=== PATIENT | female | born 1995 | race Caucasian/White ===

== ENCOUNTER 2017-06-17 09:31 | Inpatient (IN) | payer MEDICAID, SELFPAY ==
[2017-06-17] MEDS: Lactated Ringers 1,000 ML 50 ML IV ×2 (09:45→10:45)
[2017-06-17 09:54] VITALS: BMI 26.4
[2017-06-17 10:10] LABS: Hematocrit 35.9 % (37-47); Hemoglobin 11.9 g/dl (12.0-15.0); Mean Corp Hgb Conc 33.1 g/gl (32-36); Mean Corpuscular Hgb 29.8 pg (27.0-32.0); Mean Corpuscular Volume 89.8 fL (81-99); Mean Platelet Vol. 10.2 fl (6.2-12.0); Platelet Count 314 K/mm3 (150-450); RBC Distribution Width CV 14.8 % (11.6-14.6); RBC Distribution Width SD 47.7 fl (35.1-43.9); White Blood Count 12.2 K/mm3 (4.4-11.0)
[2017-06-17 10:11] LABS: Scan Indicated on CBC? Y/N NO
[2017-06-17 10:15] LABS: Fibrinogen 345 mg/dl (203-444)
[2017-06-17 10:32] LABS: Hemoglobin A1c 4.9 % (4.2-6.3)
[2017-06-17] MEDS: fentaNYL-bupivacaine (epidural) 100 ML BAG EPIDURAL (11:30)
[2017-06-17] MEDS: Oxytocin 30 units/NS 500 ml 30 UNITS/500 ML IV.SOLN 334 UNITS IV (12:40)
[2017-06-17 12:57] LABS: Amphetamine Urine VISTA NEGATIVE (<1000 ng/mL); Barbiturate Urine VISTA NEGATIVE (< 200 ng/mL); Benzodiazepine Urine VISTA NEGATIVE (< 200 ng/mL); Cocaine Urine VISTA NEGATIVE (< 300 ng/mL); Ecstacy Urine VISTA NEGATIVE (< 500 ng/mL); Methadone Urine VISTA NEGATIVE (< 300 ng/mL); PCP Urine VISTA NEGATIVE (< 25 ng/mL); THC Urine VISTA NEGATIVE (< 50 ng/mL); Vista UDS pH Range 7
[2017-06-17] MEDS: Oxytocin 30 units/NS 500 ml 30 UNITS/500 ML IV.SOLN 167 UNITS IV (13:10)
[2017-06-17] MEDS: Methylergonovine 0.2 MG/ML Ampul IM (14:13)
[2017-06-17] MEDS: 0.9% Saline Lock 10 ML Syringe IV (16:04)
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
[2017-06-17] MEDS: Naproxen 250 MG Tablet 500 MG PO (17:08)
[2017-06-17 17:30] VITALS: BP 117/58; PULSE 85; RESP 18; TEMP 36.9
[2017-06-17 20:48] VITALS: BP 126/61; PULSE 85; RESP 16; TEMP 36.5
[2017-06-18] VITALS: BP 122/56; PULSE 75; RESP 15; TEMP 36.8
[2017-06-18] MEDS: Acetaminophen 325 MG Tablet PO ×2 (00:12→22:34)
--- NOTE | 2017-06-18 03:48 | NURSING ---
Patient aware that infant needing to eat every 3 hours. Infant was due to eat at 0300. Entered room and patient sleeping sound. Very difficulty to awaken. Attempted to feed infant by holding bottle in 's mouth. not sucking. This nurse took infant and worked with him feeding. Chin support needed. It took 20 minutes for to take in 12cc. Patient slept entire time.
[2017-06-18 03:58] VITALS: PULSE 74; RESP 14
--- NOTE | 2017-06-18 06:26 | PCM.HP.OB ---
- Problem List (1) Limited care Status: Acute (2) Methamphetamine use Status: Acute (3) Supervision of high risk due to social problems Status: Acute (4) Active labor at term Status: Acute History Date of Admission: 06/17/17 Final FABIAN: 06/20/17 Gestational age: 39 Weeks and 5 Days History of this : 22 yo @ 39w4d presented IAL 6 cm. she recently moved here from [place] and hadn't received care since 24 week GA. she had normal lab testing and an anatomy scan thatw as normal and consistent with her FABIAN by LMP. she never received diabetes testing. she admits methamphetamine use a week ago and has previously been in recovery but now relapsed. she doesn't have custody of her other two children. Pertinent Past Medical History: Mom's Labs & Results 06/17/17 06/17/17 06/17/17 09:45 09:45 09:45 WBC 12.2 H RBC 4.00 L Hgb 11.9 L Hct 35.9 L MCV 89.8 MCH 29.8 MCHC 33.1 RDW 14.8 H RDW Differential 47.7 H Plt Count 314 MPV 10.2 Fibrinogen 345 Hemoglobin A1c Urine Opiates Screen Urine Methadone Screen Ur Barbiturates Screen Ur Phencyclidine Scrn Ur Amphetamines Screen U Methamphetamin-MDMA U Benzodiazepines Scrn Urine Cocaine Screen U Cannabinoids Screen Ur Drug Screen Comment Hepatitis C Ab (EIA) HCV RNA Quant (PCR) Hepatitis C Comment Blood Type Cancelled Antibody Screen Cancelled 06/17/17 06/17/17 06/17/17 09:45 12:30 17:20 WBC RBC Hgb Hct MCV MCH MCHC RDW RDW Differential Plt Count MPV Fibrinogen Hemoglobin A1c 4.9 Urine Opiates Screen NEGATIVE Urine Methadone Screen NEGATIVE Ur Barbiturates Screen NEGATIVE Ur Phencyclidine Scrn NEGATIVE Ur Amphetamines Screen NEGATIVE U Methamphetamin-MDMA NEGATIVE U Benzodiazepines Scrn NEGATIVE Urine Cocaine Screen NEGATIVE U Cannabinoids Screen NEGATIVE Ur Drug Screen Comment Hepatitis C Ab (EIA) HCV RNA Quant (PCR) Hepatitis C Comment Blood Type B POSITIVE Antibody Screen NEGATIVE 06/17/17 18:00 WBC RBC Hgb Hct MCV MCH MCHC RDW RDW Differential Plt Count MPV Fibrinogen Hemoglobin A1c Urine Opiates Screen Urine Methadone Screen Ur Barbiturates Screen Ur Phencyclidine Scrn Ur Amphetamines Screen U Methamphetamin-MDMA U Benzodiazepines Scrn Urine Cocaine Screen U Cannabinoids Screen Ur Drug Screen Comment Hepatitis C Ab (EIA) Pending HCV RNA Quant (PCR) Pending Hepatitis C Comment Pending Blood Type Antibody Screen Course Did the patient receive Yes care? Labs Blood Type: B RH: POSITIVE RPR/VDRL/Syphilis Nonreactive Rubella status Immune HbSAg Negative Date Done: 11/11/16 Chlamydia Negative Gonorrhea Negative HIV/AIDS Non-Reactive Group B Strep: Not Done Current Obstetrical History Gestational Diabetes No Incompetent Cervix No Infertility No IUGR No Macrosomia No Hypertension/Pre-eclampsia No Placenta Previa/Abruption No PTL/PROM No Uterine anomaly No Oligohydramnios No Polyhydramnios No Multiple gestation No Past Medical History Asthma No Diabetes No Hypertension No Heart disease No Mitral valve prolapse No Neurologic/Seizure disorder/ No Migraines Kidney disease No Liver disease No Varicosities No Clotting disorders/Hx of DVT No Thyroid Dysfunction No Other medical diseases No Psychiatric disorders Yes: depression, anxiety Major trauma No Abnormal PAP smear No Sleep apnea No Mammogram in the last 2 years No Social History Marital Status: SINGLE Hx Smoking Yes Smoking Status Current every day smoker Substance Use Type Methamphetamine How long have you used 1 year substances (years)? What date/time did you last 1 week ago use any of the above? Have you had any previous [facility] November inpatient or outpatient treatment Allergies No Known Allergies Allergy (Verified 06/17/17 09:55) Current Medications Acetaminophen (Tylenol) 325 - 650 mg PO Q4H PRN PRN PRN Reason: PAIN OR FEVER >100.4F Last Admin: 06/18/17 00:12 Dose: 650 mg Hydrocodone Bitart/Acetaminophen (Canyon 5mg-325mg) 1 - 2 tablet PO Q4H PRN PRN PRN Reason: PAIN Al Hydroxide/Mg Hydroxide (Mylanta Ii) 15 - 30 ml PO Q4H PRN PRN PRN Reason: INDIGESTION Bisacodyl (Dulcolax) 10 mg RECTAL UD PRN PRN Reason: If no BM Citric Acid/Sodium Citrate (Bicitra) 30 ml PO UD PRN Dibucaine (Dibucaine) 1 applic TOPICAL TID PRN PRN; Protocol PRN Reason: Discomfort Hydrocortisone (Hytone) 1 applic TOPICAL TID PRN PRN; Protocol PRN Reason: Discomfort Lactated Ringer's () 1,000 mls @ 50 mls/hr IV .Q20H HANNAH Last Admin: 06/17/17 10:45 Dose: 50 mls/hr Naloxone HCl 4 mg/ Dextrose 504 mls @ 0 mls/hr IV PRN PRN; Protocol PRN Reason: TO MAINTAIN RR>10 Methylergonovine Maleate (Methergine) 0.2 mg IM X1 PRN PRN Reason: Excess bleeding/uterine atony Last Admin: 06/17/17 14:13 Dose: 0.2 mg Nalbuphine HCl (Nubain) 5 - 10 mg IV Q3H PRN PRN PRN Reason: PAIN (4-10/10) Nalbuphine HCl (Nubain) 5 mg IV Q3H PRN PRN Reason: ITCHING Stop: 06/18/17 13:09 Naloxone HCl (Narcan) 0.2 mg IV Q1M PRN PRN Reason: RR<10 AND PT UNRESPONSIVE Stop: 06/18/17 13:09 Naproxen (Naprosyn) 500 mg PO BID PRN PRN PRN Reason: MILD PAIN (1-3/10) Last Admin: 06/17/17 17:08 Dose: 500 mg Ondansetron HCl (Zofran) 4 mg IV Q8H PRN PRN PRN Reason: NAUSEA Promethazine HCl (Phenergan Iv) 6.25 - 12.5 mg IV Q4H PRN PRN; Protocol PRN Reason: IF NAUSEA PERSISTS Senna/Docusate Sodium (Senokot-S, Nela-Colace) 1 - 2 tablet PO DAILY PRN PRN PRN Reason: Constipation Sodium Chloride () 5 - 15 ml IV UD [facility] Last Admin: 06/17/17 16:04 Dose: 10 ml Number of Fetus(es): 1 - 140 moderate variabiity reactive no decels Review of Systems Constitutional: Denies: Fever HEENT: Denies: Head Aches Cardiovascular: Denies: Chest Pain Respiratory: Denies: Cough, Shortness of Breath Gastrointestinal: Reports: Abdominal Pain Gynecological: Reports: Vaginal bleeding, Vaginal discharge Psychiatric: Reports: Depression Physical Exam Vitals: Vital Signs Temp Pulse Resp BP 98.3 F 74 14 122/56 H 06/18/17 00:00 06/18/17 03:58 06/18/17 03:58 06/18/17 00:00 General: Alert, Oriented x3 Cardiovascular: Regular rate Lungs: Normal air movement Abdomen: Soft, Gravid Extremities:: No edema Estimated gestational size: Small for gestational age Presentation: Cephalic Cervix Dilation (cm): 6 Station: -1 Assessment/Plan Active and Suspected Problems Limited care (Acute) Methamphetamine use (Acute) Supervision of high risk due to social problems (Acute) Active labor at term (Acute) 22 yo @ 39w4d presents IAL IAL check tox screen, obtained previous care records. plan social work consult.
--- NOTE | 2017-06-18 06:31 | HP.PCM_ITS ---
- Problem List (1) Limited care Status: Acute (2) Methamphetamine use Status: Acute (3) Supervision of high risk due to social problems Status: Acute (4) Active labor at term Status: Acute History Date of Admission: 06/17/17 Final FABIAN: 06/20/17 Gestational age: 39 Weeks and 5 Days History of this : 22 yo @ 39w4d presented IAL 6 cm. she recently moved here from [place] and hadn't received care since 24 week GA. she had normal lab testing and an anatomy scan thatw as normal and consistent with her FABIAN by LMP. she never received diabetes testing. she admits methamphetamine use a week ago and has previously been in recovery but now relapsed. she doesn't have custody of her other two children. Pertinent Past Medical History: Mom's Labs & Results 06/17/17 06/17/17 06/17/17 09:45 09:45 09:45 WBC 12.2 H RBC 4.00 L Hgb 11.9 L Hct 35.9 L MCV 89.8 MCH 29.8 MCHC 33.1 RDW 14.8 H RDW Differential 47.7 H Plt Count 314 MPV 10.2 Fibrinogen 345 Hemoglobin A1c Urine Opiates Screen Urine Methadone Screen Ur Barbiturates Screen Ur Phencyclidine Scrn Ur Amphetamines Screen U Methamphetamin-MDMA U Benzodiazepines Scrn Urine Cocaine Screen U Cannabinoids Screen Ur Drug Screen Comment Hepatitis C Ab (EIA) HCV RNA Quant (PCR) Hepatitis C Comment Blood Type Cancelled Antibody Screen Cancelled 06/17/17 06/17/17 06/17/17 09:45 12:30 17:20 WBC RBC Hgb Hct MCV MCH MCHC RDW RDW Differential Plt Count MPV Fibrinogen Hemoglobin A1c 4.9 Urine Opiates Screen NEGATIVE Urine Methadone Screen NEGATIVE Ur Barbiturates Screen NEGATIVE Ur Phencyclidine Scrn NEGATIVE Ur Amphetamines Screen NEGATIVE U Methamphetamin-MDMA NEGATIVE U Benzodiazepines Scrn NEGATIVE Urine Cocaine Screen NEGATIVE U Cannabinoids Screen NEGATIVE Ur Drug Screen Comment Hepatitis C Ab (EIA) HCV RNA Quant (PCR) Hepatitis C Comment Blood Type B POSITIVE Antibody Screen NEGATIVE 06/17/17 18:00 WBC RBC Hgb Hct MCV MCH MCHC RDW RDW Differential Plt Count MPV Fibrinogen Hemoglobin A1c Urine Opiates Screen Urine Methadone Screen Ur Barbiturates Screen Ur Phencyclidine Scrn Ur Amphetamines Screen U Methamphetamin-MDMA U Benzodiazepines Scrn Urine Cocaine Screen U Cannabinoids Screen Ur Drug Screen Comment Hepatitis C Ab (EIA) Pending HCV RNA Quant (PCR) Pending Hepatitis C Comment Pending Blood Type Antibody Screen Course Did the patient receive Yes care? Labs Blood Type: B RH: POSITIVE RPR/VDRL/Syphilis Nonreactive Rubella status Immune HbSAg Negative Date Done: 11/11/16 Chlamydia Negative Gonorrhea Negative HIV/AIDS Non-Reactive Group B Strep: Not Done Current Obstetrical History Gestational Diabetes No Incompetent Cervix No Infertility No IUGR No Macrosomia No Hypertension/Pre-eclampsia No Placenta Previa/Abruption No PTL/PROM No Uterine anomaly No Oligohydramnios No Polyhydramnios No Multiple gestation No Past Medical History Asthma No Diabetes No Hypertension No Heart disease No Mitral valve prolapse No Neurologic/Seizure disorder/ No Migraines Kidney disease No Liver disease No Varicosities No Clotting disorders/Hx of DVT No Thyroid Dysfunction No Other medical diseases No Psychiatric disorders Yes: depression, anxiety Major trauma No Abnormal PAP smear No Sleep apnea No Mammogram in the last 2 years No Social History Marital Status: SINGLE Hx Smoking Yes Smoking Status Current every day smoker Substance Use Type Methamphetamine How long have you used 1 year substances (years)? What date/time did you last 1 week ago use any of the above? Have you had any previous [facility] November inpatient or outpatient treatment Allergies No Known Allergies Allergy (Verified 06/17/17 09:55) Current Medications Acetaminophen (Tylenol) 325 - 650 mg PO Q4H PRN PRN PRN Reason: PAIN OR FEVER >100.4F Last Admin: 06/18/17 00:12 Dose: 650 mg Hydrocodone Bitart/Acetaminophen (Jamison 5mg-325mg) 1 - 2 tablet PO Q4H PRN PRN PRN Reason: PAIN Al Hydroxide/Mg Hydroxide (Mylanta Ii) 15 - 30 ml PO Q4H PRN PRN PRN Reason: INDIGESTION Bisacodyl (Dulcolax) 10 mg RECTAL UD PRN PRN Reason: If no BM Citric Acid/Sodium Citrate (Bicitra) 30 ml PO UD PRN Dibucaine (Dibucaine) 1 applic TOPICAL TID PRN PRN; Protocol PRN Reason: Discomfort Hydrocortisone (Hytone) 1 applic TOPICAL TID PRN PRN; Protocol PRN Reason: Discomfort Lactated Ringer's () 1,000 mls @ 50 mls/hr IV .Q20H HANNAH Last Admin: 06/17/17 10:45 Dose: 50 mls/hr Naloxone HCl 4 mg/ Dextrose 504 mls @ 0 mls/hr IV PRN PRN; Protocol PRN Reason: TO MAINTAIN RR>10 Methylergonovine Maleate (Methergine) 0.2 mg IM X1 PRN PRN Reason: Excess bleeding/uterine atony Last Admin: 06/17/17 14:13 Dose: 0.2 mg Nalbuphine HCl (Nubain) 5 - 10 mg IV Q3H PRN PRN PRN Reason: PAIN (4-10/10) Nalbuphine HCl (Nubain) 5 mg IV Q3H PRN PRN Reason: ITCHING Stop: 06/18/17 13:09 Naloxone HCl (Narcan) 0.2 mg IV Q1M PRN PRN Reason: RR<10 AND PT UNRESPONSIVE Stop: 06/18/17 13:09 Naproxen (Naprosyn) 500 mg PO BID PRN PRN PRN Reason: MILD PAIN (1-3/10) Last Admin: 06/17/17 17:08 Dose: 500 mg Ondansetron HCl (Zofran) 4 mg IV Q8H PRN PRN PRN Reason: NAUSEA Promethazine HCl (Phenergan Iv) 6.25 - 12.5 mg IV Q4H PRN PRN; Protocol PRN Reason: IF NAUSEA PERSISTS Senna/Docusate Sodium (Senokot-S, Nela-Colace) 1 - 2 tablet PO DAILY PRN PRN PRN Reason: Constipation Sodium Chloride () 5 - 15 ml IV UD [facility] Last Admin: 06/17/17 16:04 Dose: 10 ml Number of Fetus(es): 1 - 140 moderate variabiity reactive no decels Review of Systems Constitutional: Denies: Fever HEENT: Denies: Head Aches Cardiovascular: Denies: Chest Pain Respiratory: Denies: Cough, Shortness of Breath Gastrointestinal: Reports: Abdominal Pain Gynecological: Reports: Vaginal bleeding, Vaginal discharge Psychiatric: Reports: Depression Physical Exam Vitals: Vital Signs Temp Pulse Resp BP 98.3 F 74 14 122/56 H 06/18/17 00:00 06/18/17 03:58 06/18/17 03:58 06/18/17 00:00 General: Alert, Oriented x3 Cardiovascular: Regular rate Lungs: Normal air movement Abdomen: Soft, Gravid Extremities:: No edema Estimated gestational size: Small for gestational age Presentation: Cephalic Cervix Dilation (cm): 6 Station: -1 Assessment/Plan Active and Suspected Problems Limited care (Acute) Methamphetamine use (Acute) Supervision of high risk due to social problems (Acute) Active labor at term (Acute) 22 yo @ 39w4d presents IAL IAL check tox screen, obtained previous care records. plan social work consult.
[2017-06-18] MEDS: Naproxen 250 MG Tablet 500 MG PO ×2 (08:46→20:07)
[2017-06-18 10:00] VITALS: BP 106/56; PULSE 76; RESP 16; TEMP 36.2
--- NOTE | 2017-06-18 11:30 | CASEMGMT ---
Social Work - PHQ9 follow up Score of 14 Summary of visit: Reviewed PHQ9 results with MOB. MOB endorses feeling down and depressed, sleeping too much, feeling tired, overeating, and being fidgety and restless more than half days over the last 2 weeks. MOB reports feeling bad about herself nearly everyday. MOB reports loss of interest for several days. MOB denies any difficulty concentrating or any thoughts of suicide or that would be better off . MOB does attribute the restlessness and fidgety movements due to methamphetamine use. MOB reports would be willing to have a referral for outpatient mental health treatment, not as interested in substance abuse treatment at this time. MOB also more interested in counseling rather than medication at this point. MOB indicated that feels to have the willpower to remain drug free at this time, as MOB has a focus in needing to care for the baby. Reviewed local options for mental health and substance use treatment. MOB chooses [facility], which has both mental health and substance abuse treatment services. Release of information signed to this agency. Assessment: MOB cooperative during this interaction, answering questions, matter of fact about about answers. Eye contact fair to normal. Motor activity calm. Mood sad and affect constricted to flattened. MOB does attribute some symptoms due to drug use but admits to be struggling with how feels about self. MOB expressing receptivity to try some outpatient counseling for added support in the period. MOB adamantly denies any thoughts of self harm or harm to others. Plan: Will provide appointment and depression packet to MOB, which includes both local and online resources for help and support. -ANNA Norton, CONTINUOUS IMPROVEMENT DIRECTOR
[2017-06-18 14:00] VITALS: BP 116/69; PULSE 88; RESP 16; TEMP 36.6
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
[2017-06-18 20:30] VITALS: BP 118/66; PULSE 74; RESP 18; TEMP 36.1; O2SAT 99
[2017-06-19] MEDS: Naproxen 250 MG Tablet 500 MG PO ×2 (03:28→10:56)
[2017-06-19 03:34] VITALS: BP 119/54; PULSE 73; RESP 18; TEMP 36.3; O2SAT 98
--- NOTE | 2017-06-19 06:24 | PCM.PN.OB ---
Patient Problems: Active and Suspected Problems Limited care (Acute) Methamphetamine use (Acute) Supervision of high risk due to social problems (Acute) Active labor at term (Acute) Subjective: late entry- patient seen 06/18/17 at 1230 no CP SOB pain fairly controlled lochia normal - Physical Exam General: Alert Lungs: Normal air movement Vital Signs Temp Pulse Resp BP Pulse Ox 97.3 F L 73 18 119/54 L 98 06/19/17 03:34 06/19/17 03:34 06/19/17 03:34 06/19/17 03:34 06/19/17 03:34 Oxygen Delivery Method Room Air Weight: 158 lb 11.725 oz Body Mass Index (BMI) 26.4 Intake and Output for Last 24 Hours 06/17/17 06/18/17 06/19/17 23:59 23:59 23:59 Intake Total 2123 / 2123 Output Total 3850 / 3850 Balance -1727 / -1727 Medical Necessity - Tobacco Use Smoking Status: Current every day smoker Assessment/Plan Active and Suspected Problems Limited care (Acute) Methamphetamine use (Acute) Supervision of high risk due to social problems (Acute) Active labor at term (Acute) s/p routine care social work consult
--- NOTE | 2017-06-19 06:25 | PCM.DCVAG ---
Discharge Diet: No Restrictions Discharge Activity: Return to Normal Activity, May not drive while taking narcotic pain medications., May Shower May resume sexual activity in: 4-6 weeks Call your doctor if your incision/area has: Continuous Slow Oozing, Sudden Increased Bleeding, Increased Pain/ Swelling, Increased Redness, Foul Smelling Discharge Additional Instructions: If you experience any of the following, contact your healthcare provider. Bleeding that soaks a pad every hour for 2 hours Fever 100.4 or higher Unrelieved incision or abdominal pain Swelling, redness, discharge or bleeding from your incision or episiotomy site Your incision begins to separate Problems urinating (including inability to urinate or burning while urinating). Visual changes Severe headache Flu-like symptoms Pain or redness in one of both of your breasts Pain, warmth, tenderness or swelling in your legs, especially the calf area Frequent nausea and vomiting Symptoms of depression or anxiety If you experience any of the following, call 911 or go to the nearest Emergency Room. Chest pain Problems breathing Seizure activity Partial or complete paralysis of a body part, slurred speech, weakness or drooping of the face, or a sudden inability to walk or hold your balance Allergies/Adverse Reactions: Allergies No Known Allergies Allergy (Verified 06/17/17 09:55) Medications to take at Discharge Naproxen [Naprosyn] 250 - 500 mg PO Q8H PRN PRN #30 tab 06/19/17 The following prescriptions were given: Naproxen [Naprosyn] 250 - 500 mg PO Q8H PRN PRN #30 tab PRN Reason: MILD PAIN Please Follow Up With: Porsha Friend MD - [phone] When: Call to make an appointment with your doctor in 6 weeks. If you had elevated Blood pressure or 4th degree laceration you will need to be seen in 2 weeks.
--- NOTE | 2017-06-19 06:26 | DCINST_ITS ---
Discharge Diet: No Restrictions Discharge Activity: Return to Normal Activity, May not drive while taking narcotic pain medications., May Shower May resume sexual activity in: 4-6 weeks Call your doctor if your incision/area has: Continuous Slow Oozing, Sudden Increased Bleeding, Increased Pain/ Swelling, Increased Redness, Foul Smelling Discharge Additional Instructions: If you experience any of the following, contact your healthcare provider. * Bleeding that soaks a pad every hour for 2 hours * Fever 100.4 or higher * Unrelieved incision or abdominal pain * Swelling, redness, discharge or bleeding from your incision or episiotomy site * Your incision begins to separate * Problems urinating (including inability to urinate or burning while urinating) . * Visual changes * Severe headache * Flu-like symptoms * Pain or redness in one of both of your breasts * Pain, warmth, tenderness or swelling in your legs, especially the calf area * Frequent nausea and vomiting * Symptoms of depression or anxiety If you experience any of the following, call 911 or go to the nearest Emergency Room. * Chest pain * Problems breathing * Seizure activity * Partial or complete paralysis of a body part, slurred speech, weakness or drooping of the face, or a sudden inability to walk or hold your balance Allergies/Adverse Reactions: Allergies No Known Allergies Allergy (Verified 06/17/17 09:55) Medications to take at Discharge Naproxen [Naprosyn] 250 - 500 mg PO Q8H PRN PRN #30 tab 06/19/17 The following prescriptions were given: Naproxen [Naprosyn] 250 - 500 mg PO Q8H PRN PRN #30 tab PRN Reason: MILD PAIN Please Follow Up With: Porsha Friend MD - [phone] When: Call to make an appointment with your doctor in 6 weeks. If you had elevated Blood pressure or 4th degree laceration you will need to be seen in 2 weeks.
--- NOTE | 2017-06-19 06:40 | PCM.OB.VAG ---
- Problem List (1) Limited care Status: Acute (2) Methamphetamine use Status: Acute (3) Supervision of high risk due to social problems Status: Acute (4) Active labor at term Status: Acute Vaginal Delivery Maternal Presentation: Active Labor @ 39w4d presents IAL at 6 cm. she hadn't received PNC since february and was only seen in [place], not here locally. she admitted to recent meth use and has a history of addiction, recovery, and relapse. Amniotic Membrane Rupture Type: Artificial Amniotic Fluid Description: Clear Final FABIAN: 06/20/17 Gestational age: 39 Weeks and 4 Days Date of Procedure: 06/17/17 Pre-Operative Diagnosis: ial Post-Operative Diagnosis: same Surgery/ Procedure Performed: Spontaneous Vaginal Delivery Type of Anesthesia: Epidural, Pudendal block with 1% lidocaine Description of Procedure: patient was found to be 8 cm in severe pain and requesting pain medication. the vagina was prepped wit hbetadine and bilateral ischial spines were identififed and 2 cm medial and posterior to the spines 10 cc of lidocaine was injected without complication. patient then received an epidural. she was complete within an hour and the Patient began pushing and delivered the head in the JAZMINE presentation. The head was delivered atraumatically. The anterior and posterior shoulders delivered without complication followed by the rest of the infant and the infant was placed on the maternal abdomen. Delayed cord clamping was employed for approximately 60 seconds. Cord was clamped and cut and gentle traction was applied to the cord and the placenta delivered spontaneously immediately following it was noted to be intact with three-vessel cord. Patient and tolerated delivery well. Placental Delivery Description: Spontaneous Infant A gender: Male Medications given after delivery: IV Pitocin Complications: None
[2017-06-19 07:48] VITALS: BP 116/60; PULSE 77; RESP 18; TEMP 36.2; O2SAT 99
--- NOTE | 2017-06-19 09:33 | PCM.PN.OB ---
Patient Problems: Active and Suspected Problems Limited care (Acute) Methamphetamine use (Acute) Supervision of high risk due to social problems (Acute) Active labor at term (Acute) Subjective: doing well no complaints - Physical Exam General: Alert, Oriented x3 Vital Signs Temp Pulse Resp BP Pulse Ox 97.2 F L 77 18 116/60 99 06/19/17 07:48 06/19/17 07:48 06/19/17 07:48 06/19/17 07:48 06/19/17 07:48 Oxygen Delivery Method Room Air Weight: 158 lb 11.725 oz Body Mass Index (BMI) 26.4 Intake and Output for Last 24 Hours 06/17/17 06/18/17 06/19/17 23:59 23:59 23:59 Intake Total 2123 / 2123 Output Total 3850 / 3850 Balance -1727 / -1727 Medical Necessity - Tobacco Use Smoking Status: Current every day smoker Assessment/Plan Active and Suspected Problems Limited care (Acute) Methamphetamine use (Acute) Supervision of high risk due to social problems (Acute) Active labor at term (Acute) s/p - dc to hotel status
[2017-06-19] MEDS: MedroxyPROGESTERone 150 MG/ML Syringe IM (10:56)
[2017-06-20 03:06] LABS: HCV Quant. RNA PCR HCV Not Detected IU/mL (.)
[2017-06-20 08:13] LABS: Hep C Antibodies <0.1 s/co ratio (0.0-0.9)
--- NOTE | 2017-06-22 10:55 | CASEMGMT ---
Social Work - Labor and Delivery Unit Discharge Note Patient/mother of baby (MOB) was discharged over the weekend time frame. Baby remained a patient in the hospital until Wednesday06-21-17. Documentation in baby's chart regarding social work involvement with MOB on 06-21-17. MOB was discharged on 06-19-17, was been given resources prior to discharge as well as mental health follow up for 06-22-17 at 1000 at [facility]. [facility] ([facility]) involved for disposition of baby, which resulted in [facility] being granted emergency temporary custody of baby at time of baby's discharge on 06-22-17. MOB to continue working with [facility] after discharge from hospital. No other services requested or indicated. -ANNA Norton, HOTEL OR MOTEL CLEANING SUPERVISOR
== END 2017-06-19 11:10 | disposition home or self-care (01) | DRG 373 ==
PROVIDERS: Admitting Provider Obstetrics & Gynecology; Visit Provider Obstetrics & Gynecology
DX: O99.324 Drug use complicating childbirth (principal); F15.90 Other stimulant use, unspecified, uncomplicated; O99.334 Smoking (tobacco) complicating childbirth; F17.200 Nicotine dependence, unspecified, uncomplicated; Z37.0 Single live birth; Z3A.39 39 weeks gestation of pregnancy
CPT/HCPCS: 59050; 80307; 83036; 85027; 85384; 86803; 86850; 86900; 87522; 99218; J7120; A4216; G0378